=== PATIENT | male | born 1975 | race Caucasian/White ===

== ENCOUNTER 2021-04-26 15:43 | Emergency (ER) | payer BC ==
[2021-04-26] MEDS ORDERED: Sodium Chloride 0.9% 10 ML Syringe FLUSH PRN (16:05)
--- NOTE | 2021-04-26 16:21 | EDM.PDOC ---
ED HPI GENERAL MEDICAL PROBLEM - General Chief Complaint: Respiratory Problem Stated Complaint: COUGH/ POST COVID Time Seen by Provider: 04/26/21 15:52 Source of Information: Reports: Patient, RN Notes Reviewed History Limitations: Reports: No Limitations - History of Present Illness INITIAL COMMENTS - FREE TEXT/NARRATIVE: Patient is a 45-year-old male who presents to the ER for the evaluation of his cough. Patient started getting sick with Covid-like symptoms on 04/14/2021, was diagnosed with COVID-19 on 04/15/2021. States he was given the monoclonal antibody infusion about 2 days ago. Does note that he still has some "sinus drainage", that seems to increase his cough. States that his cough is not productive. States that he does cough so much sometimes that he makes himself nauseous. He has not had any vomiting or diarrhea. No worsening fevers or chills, or any worsening facial pressure. States he has some mild chest discomfort due to the cough as well. Chest Pain Score (Numeric/FACES): 2 - Related Data Allergies Allergy/AdvReac Type Severity Reaction Status Date / Time No Known Allergies Allergy Verified 04/26/21 15:55 Home Meds: Home Meds Benzonatate 100 mg PO TID PRN 04/26/21 [History] Codeine/Promethazine [Phenergan with Codeine] 5 ml PO Q4HR PRN #120 ml 04/26/21 [Rx] Ondansetron [Zofran Odt] 8 mg PO TID PRN 04/26/21 [History] guaiFENesin [Mucinex] 1,200 mg PO BID PRN 04/26/21 [History] Past Medical History Musculoskeletal History: Reports: Fracture - Infectious Disease History Infectious Disease History: Reports: Chicken Pox, Novel Coronavirus (04/14/21) Social & Family History - Tobacco Use Tobacco Use Status *Q: Never Tobacco User Second Hand Smoke Exposure: No - Caffeine Use Caffeine Use: Reports: Soda - Alcohol Use Days Per Week of Alcohol Use: 3 Number of Drinks Per Day: 5 Total Drinks Per Week: 15 - Recreational Drug Use Recreational Drug Use: No ED ROS GENERAL - Review of Systems Review Of Systems: Comprehensive ROS is negative, except as noted in HPI. ED EXAM, GENERAL - Physical Exam Exam: See Below Exam Limited By: No Limitations General Appearance: Alert, WD/WN, No Apparent Distress Respiratory/Chest: No Respiratory Distress, Lungs Clear, Normal Breath Sounds, No Accessory Muscle Use, Chest Non-Tender Cardiovascular: Normal Peripheral Pulses, Regular Rate, Rhythm, No Edema GI/Abdominal: Normal Bowel Sounds, Soft, Non-Tender, No Distention, No Mass Extremities: Normal Inspection, Normal Capillary Refill Neurological: Alert, Oriented, Normal Cognition, No Motor/Sensory Deficits Psychiatric: Normal Affect, Normal Mood Skin Exam: Warm, Dry, Intact, Normal Color, No Rash Course - Vital Signs Last Recorded V/S: Last Vital Signs Temp 96.0 F L 04/26/21 15:45 Pulse 84 04/26/21 15:45 Resp 18 04/26/21 15:45 BP 108/70 04/26/21 15:45 Pulse Ox 91 L 04/26/21 15:45 - Orders/Labs/Meds Orders: Active Orders 24 hr Category Date Time Status Peripheral IV Care [RC] . DIRECTED Care 04/26/21 16:05 Ordered Sodium Chloride 0.9% [Saline Flush] Med 04/26/21 16:05 Ordered 10 ml FLUSH ASDIRECTED PRN Peripheral IV Insertion Adult [OM.PC] Routine Oth 04/26/21 16:05 Ordered Medication Orders Sodium Chloride (Sodium Chloride 0.9% 10 Ml Syringe) 10 ml FLUSH ASDIRECTED PRN PRN Reason: Keep Vein Open Last Admin: 04/26/21 16:18 Dose: 10 ml Documented by: CARLITA Labs: Laboratory Tests 04/26/21 04/26/21 04/26/21 Range/Units 16:15 16:15 16:15 WBC 3.79 L (4.23-9.07) K/mm3 RBC 5.13 (4.63-6.08) M/mm3 Hgb 15.2 (13.7-17.5) gm/dl Hct 43.6 (40.1-51.0) % MCV 85.0 (79.0-92.2) fl MCH 29.6 (25.7-32.2) pg MCHC 34.9 (32.2-35.5) g/dl RDW Std Deviation 36.9 (35.1-43.9) fL Plt Count 255 (163-337) K/mm3 MPV 9.2 L (9.4-12.3) fl Neut % (Auto) 74.7 H (34.0-67.9) % Lymph % (Auto) 15.6 L (21.8-53.1) % [place] % (Auto) 8.4 (5.3-12.2) % Eos % (Auto) 0.5 L (0.8-7.0) Baso % (Auto) 0.3 (0.1-1.2) % Neut # (Auto) 2.83 (1.78-5.38) K/mm3 Lymph # (Auto) 0.59 L (1.32-3.57) K/mm3 [place] # (Auto) 0.32 (0.30-0.82) K/mm3 Eos # (Auto) 0.02 L (0.04-0.54) K/mm3 Baso # (Auto) 0.01 (0.01-0.08) K/mm3 D-Dimer, Quantitative 0.70 H (0.19-0.50) mg/L Sodium 134 L (136-145) mEq/L Potassium 3.3 L (3.5-5.1) mEq/L Chloride 94 L (98-107) mEq/L Carbon Dioxide 33 H (21-32) mEq/L Anion Gap 10.3 (5-15) BUN 13 (7-18) mg/dL Creatinine 1.1 (0.7-1.3) mg/dL Est Cr Clr Drug Dosing 80.32 mL/min Estimated GFR (MDRD) > 60 (>60) mL/min BUN/Creatinine Ratio 11.8 L (14-18) Glucose 109 H (70-99) mg/dL Calcium 8.1 L (8.5-10.1) mg/dL Total Bilirubin 0.6 (0.2-1.0) mg/dL AST 38 H (15-37) U/L ALT 54 (16-63) U/L Alkaline Phosphatase 69 (46-116) U/L C-Reactive Protein 5.1 H* (<1.0) mg/dL Total Protein 6.8 (6.4-8.2) g/dl Albumin 3.2 L (3.4-5.0) g/dl Globulin 3.6 gm/dL Albumin/Globulin Ratio 0.9 L (1-2) Meds: Medications Generic Name Dose Route Start Last Admin Trade Name Cristopherq PRN Reason Stop Dose Admin Sodium Chloride 10 ml 04/26/21 16:05 04/26/21 16:18 Sodium Chloride 0.9% 10 Ml Syringe FLUSH 10 ml ASDIRECTED PRN Administration Keep Vein Open - Re-Assessments/Exams Free Text/Narrative Re-Assessment/Exam: 04/26/21 16:44 Patient presents to the ER for ongoing COVID-19 symptoms. We will get some basic labs and a chest x-ray for ongoing management. Likely he is still suffering from some Covid lingering symptoms. 04/26/21 17:18 Patient's x-rays show patchy areas of increased density in both sides of the chest combined with moderately severe Covid pneumonia. O2 sats been 91% on room air he is in no visible respiratory distress. D-dimer is slightly elevated at 0.70 all other labs fairly unremarkable but his CRP was a little bit elevated at 5.1. For today's purposes he will be able to be discharged home with conservative recommendations. I will try to get him something stronger for his cough and have him try some sinus rinses to see if this helps relieve some of t he sinus drainage that he has been having. Departure - Departure Time of Disposition: 17:19 Disposition: Home, Self-Care 01 Condition: Good Clinical Impression: COVID-19 - Discharge Information *PRESCRIPTION DRUG MONITORING PROGRAM REVIEWED*: No *COPY OF PRESCRIPTION DRUG MONITORING REPORT IN PATIENT TALITA: No Prescriptions: Codeine/Promethazine [Phenergan with Codeine] 5 ml PO Q4HR PRN #120 ml PRN Reason: Cough Instructions: Prone Position Therapy, 10 Things You Can Do to Manage Your COVID-19 Symptoms at Home - [facility] (12/21/2020) Referrals: PCP,None [Primary Care Provider] - Forms: ED Department Discharge Additional Instructions: You were seen in the ER today for ongoing and/or worsening respiratory symptoms. Your chest x-ray showed some signs of viral of pneumonia typical for COVID-19 infection at this time. Your oxygen levels were acceptable at around 91% on room air. Other labs were investigated at today's visit, and although the D-dimer test which is a measure for clot type material in your blood was elevated, this has been found to be typically elevated in people with COVID-19, and with your vitals as stable as they were, no blood clot in your lung is thought to be present due to this level. Please try to increase your oral fluid intake, and eat multiple small meals throughout the day, to keep yourself healthy. You need to keep yourself nourished in order to fight off this disease. You can try a liquid diet like gatorade/powerade as well to get your electrolytes. You may take 500 mg Tylenol every hours 6 hours for pain/fever relief. Do not exceed 4000 mg Tylenol in a 24-hour time span. However, running a fever is your body's natural response to illness, and it allows the body to develop antibodies to disease, we are recommending trying to limit the use of Tylenol as much as possible to allow your body's natural immune response. Recommend you obtain a pulse oximeter and monitor your oxygen levels at home, you should place the monitor on your finger, and sit in a calm, quiet position for a few minutes and then record the number that is on the screen. If this consistently below 90% on room air without movement, this would be cause for concern to come back to the hospital for further management of your COVID-19 d isease. You were given a prescription for cough medication please take as directed for ongoing management of your cough. I would also recommend that you obtain a sinus rinse type apparatus to start rinsing your sinuses 1-2 times a day for the next few days to see if this helps relieve some of your sinus drainage, which may also improve your cough. This medication was electronically sent to the [place] pharmacy located in the [facility] grocery store. Please follow all guidance set forth from [facility], regarding isolation purposes for your disease process. General isolation times are 10 days from when you started being symptomatic. Sepsis Event Note (ED) - Evaluation Sepsis Screening Result: No Definite Risk - Focused Exam Vital Signs: Vital Signs Temp Pulse Resp BP Pulse Ox 04/26/21 15:45 96.0 F L 84 18 108/70 91 L - My Orders Last 24 Hours: My Active Orders 04/26/21 16:05 Peripheral IV Care [RC] . DIRECTED Sodium Chloride 0.9% [Saline Flush] 10 ml FLUSH ASDIRECTED PRN Peripheral IV Insertion Adult [OM.PC] Routine - Assessment/Plan Last 24 Hours: My Active Orders 04/26/21 16:05 Peripheral IV Care [RC] . DIRECTED Sodium Chloride 0.9% [Saline Flush] 10 ml FLUSH ASDIRECTED PRN Peripheral IV Insertion Adult [OM.PC] Routine
--- NOTE | 2021-04-26 16:54 | CR ---
Chest: Portable view of the chest was obtained. Comparison: No prior chest imaging is available. Patchy areas of increased density are seen on both sides of the chest. Heart size and mediastinum are normal. Bony structures show nothing acute. Impression: 1. Patchy areas of increased density on both sides of the chest compatible with moderately severe COVID pneumonia. Diagnostic code #3
== END 2021-04-26 18:21 | disposition home or self-care (01) ==
LOC: JD.ED 15:43
DX: U07.1 COVID-19 (principal)
CPT/HCPCS: 36415; 71045; 71045-26; 80053; 85025; 85379; 86140; 99283-25